=== PATIENT | male | born 1950 ===

== ENCOUNTER 2021-06-18 10:45 | Inpatient (IN) | payer OTHER ==
[~2021-06-18] VITALS: Ht 180.3 cm; Wt 83.0 kg
[2021-06-18] MEDS ORDERED: NEURONTIN300 MG PO (15:09)
[2021-06-18] MEDS ORDERED: ZESTRIL10 M1 PO (15:09)
[2021-06-18] MEDS ORDERED: METFORMIN HCL500 M3 PO (15:09)
[2021-06-18] MEDS ORDERED: SIMVASTATIN10 MG PO (15:10)
[2021-06-18] MEDS ORDERED: ADULT LOW DOSE81 M1 PO (15:10)
[2021-06-18] MEDS ORDERED: PENTOXIFYLLINE400 MG PO (15:10)
[2021-06-18] MEDS ORDERED: NAPR500T14 PO (15:10)
[2021-06-28] MEDS ORDERED: PERCOCET 5-3251 EACH PO (15:59)
== END 2021-06-29 06:59 | disposition home or self-care (01) | DRG 334 ==
LOC: SURH 06-24 05:00 → O/R 06-24 05:00 → SURH 06-24 07:00
PROVIDERS: ADMIT Surgery; ATTEND Surgery
PROC: 0DUP47Z Supplement Rectum with Autologous Tissue Substitute, Percutaneous Endoscopic Approach (ICD-10-PCS; 2021-06-24)
PROC: 0DJD8ZZ Inspection of Lower Intestinal Tract, Via Natural or Artificial Opening Endoscopic (ICD-10-PCS; 2021-06-24)
PROC: 0DTP4ZZ Resection of Rectum, Percutaneous Endoscopic Approach (ICD-10-PCS; principal; 2021-06-24 09:15)
DX: C20 Malignant neoplasm of rectum (principal); D50.0 Iron deficiency anemia secondary to blood loss (chronic); E11.40 Type 2 diabetes mellitus with diabetic neuropathy, unspecified; Z79.84 Long term (current) use of oral hypoglycemic drugs

== ENCOUNTER 2021-06-24 07:01 | Outpatient (CLI) | payer OTHER ==
[~2021-06-24 07:01] MED LIST: ADULT LOW DOSE81 M1 PO; METFORMIN HCL500 M3 PO; NAPR500T14 PO; NEURONTIN300 MG PO; PENTOXIFYLLINE400 MG PO; SIMVASTATIN10 MG PO; ZESTRIL10 M1 PO
== END 2021-06-24 15:00 | disposition home or self-care (01) ==
LOC: LAB 07:01
PROVIDERS: ATTEND Surgery
DX: K59.09 Other constipation (principal); C20 Malignant neoplasm of rectum; Z03.818 Encounter for observation for suspected exposure to other biological agents ruled out

== ENCOUNTER 2021-09-20 20:55 | Inpatient (IN) | payer OTHER ==
[~2021-09-20] VITALS: Ht 180.3 cm; Wt 68.9 kg
[~2021-09-20 20:55] MED LIST changes: +PERCOCET 5-3251 EACH PO
[2021-09-20] MEDS ORDERED: METFORMIN HCL500 MG (21:04)
[2021-09-20] MEDS ORDERED: [UNRECOGNIZED DRUG - OTHER] (21:04)
[2021-09-20] MEDS ORDERED: TAMS0.4C (21:05)
[2021-09-23] MEDS ORDERED: CYANOCOBAL1000 MCG/1 (08:04)
[2021-09-23] MEDS ORDERED: PENTOXIFYLLINE400 MG (08:04)
[2021-09-23] MEDS ORDERED: KETOCONAZOLE15 GM (08:05)
[2021-09-23] MEDS ORDERED: PANTOPRAZOLE SO40 MG (08:05)
[2021-10-11] MEDS ORDERED: AMOX-CLAV 875-1 EACH PO (15:56)
[2021-10-11] MEDS ORDERED: FLUCONAZOLE100 MG PO (15:58)
== END 2021-10-11 22:14 | disposition home or self-care (01) | DRG 394 ==
LOC: ER 20:55 → SURG 09-21 16:32
PROVIDERS: ADMIT Surgery; ATTEND Surgery
PROC: BW2110Z Computerized Tomography (CT Scan) of Abdomen and Pelvis using Low Osmolar Contrast, Unenhanced and Enhanced (ICD-10-PCS; 2021-09-21)
PROC: BT4JZZZ Ultrasonography of Kidneys and Bladder (ICD-10-PCS; 2021-09-23)
PROC: 0Y9130Z Drainage of Left Buttock with Drainage Device, Percutaneous Approach (ICD-10-PCS; principal; 2021-09-24)
PROC: 30233N1 Transfusion of Nonautologous Red Blood Cells into Peripheral Vein, Percutaneous Approach (ICD-10-PCS; 2021-09-24)
PROC: 02HV33Z Insertion of Infusion Device into Superior Vena Cava, Percutaneous Approach (ICD-10-PCS; 2021-09-24)
PROC: BW2110Z Computerized Tomography (CT Scan) of Abdomen and Pelvis using Low Osmolar Contrast, Unenhanced and Enhanced (ICD-10-PCS; 2021-09-30)
PROC: 0Y9130Z Drainage of Left Buttock with Drainage Device, Percutaneous Approach (ICD-10-PCS; 2021-10-01)
PROC: 0DJD8ZZ Inspection of Lower Intestinal Tract, Via Natural or Artificial Opening Endoscopic (ICD-10-PCS; 2021-10-07)
PROC: BW2110Z Computerized Tomography (CT Scan) of Abdomen and Pelvis using Low Osmolar Contrast, Unenhanced and Enhanced (ICD-10-PCS; 2021-10-10)
DX: K61.1 Rectal abscess (principal); C20 Malignant neoplasm of rectum; N17.8 Other acute kidney failure; D50.8 Other iron deficiency anemias; D64.9 Anemia, unspecified; E83.39 Other disorders of phosphorus metabolism; E83.42 Hypomagnesemia; E78.00 Pure hypercholesterolemia, unspecified; I11.9 Hypertensive heart disease without heart failure; E11.40 Type 2 diabetes mellitus with diabetic neuropathy, unspecified; E11.9 Type 2 diabetes mellitus without complications; Z79.4 Long term (current) use of insulin; Z20.822 Contact with and (suspected) exposure to COVID-19